=== PATIENT | male | born 1935 | race Caucasian/White ===

== ENCOUNTER 2017-03-02 11:29 | Inpatient (IN) | payer MEDICARE, OTHER ==
[2017-03-02] VITALS (8 sets, daily range): BP systolic 113–148; BP diastolic 53–78; PULSE 68–87; RESP 18–20; TEMP 98.5; Ht 157.5 cm; Wt 75.5 kg
[~2017-03-02] VITALS: Ht 157.5 cm; Wt 75.5 kg
[2017-03-02] MEDS ORDERED: SOD CHLORIDE 0.9% 1,000 ML IV STA (11:44)
[2017-03-02 12:25] LABS: BASOPHIL # 0.1 10^3/ul (0.0-0.1); BASOPHILS % 0.9 % (0.0-2.0); EOSINOPHILS # 0.1 10^3/ul (0.0-0.5); EOSINOPHILS % 0.8 % (0.0-7.0); HEMATOCRIT 37.3 % (42.0-52.0); HEMOGLOBIN 12.1 g/dl (14.0-18.0); LYMPHOCYTES # 3.1 10^3/ul (0.8-2.9); LYMPHOCYTES % 39.1 % (15.0-51.0); MEAN CORPUSCULAR HGB CONC 32.4 g/dl (32.0-37.0); MEAN CORPUSCULAR VOLUME 92.6 fl (82.0-101.0); MEAN PLATELET VOLUME 10.4 fl (7.4-10.4); MONOCYTE # 0.6 10^3/ul (0.3-0.9); NEUTROPHILS % 51.8 % (39.0-77.0); PLATELET COUNT 205 10^3/UL (140-415); RED BLOOD COUNT 4.03 10^6/ul (4.70-6.10); RED CELL DISTRIBUTION WIDTH 14.2 % (11.5-14.5); WHITE BLOOD COUNT 7.9 10^3/ul (4.8-10.8)
--- NOTE | 2017-03-02 12:36 | RADRPT ---
PROCEDURE: XR Chest. CLINICAL INDICATION: Abdominal pain. TECHNIQUE: Single AP portable chest. COMPARISON: No prior Chest x-ray FINDINGS: The cardiomediastinal silhouette is within normal limits of size. Sternotomy wires in place. Minima l prominence of pulmonary vascularity. Elevation of the right hemidiaphragm. Atherosclerotic calc ification of the aorta. The lungs are clear without pleural effusion or focal consolidation. No pne umothorax. The osseous structures and soft tissues are unremarkable. IMPRESSION: 1. No evidence for active cardiopulmonary disease. RPTAT:AAJJ Physician Pawan Date Time Electronically viewed and signed by Physician Pawan on 03/02/2017 12:36 JACINTA/
[2017-03-02 12:55] LABS: ALANINE AMINOTRANSFERASE 33 IU/L (13-69); ALBUMIN 3.9 g/dl (3.3-4.9); ALBUMIN/GLOBULIN RATIO 1.21; ALKALINE PHOSPHATASE 65 IU/L (42-121); ANION GAP 20 (8-16); ASPARTATE AMINO TRANSFERASE 24 IU/L (15-46); BILIRUBIN,INDIRECT 0.6 mg/dl (0-1.1); BILIRUBIN,TOTAL 0.6 mg/dl (0.2-1.3); BLOOD UREA NITROGEN 24 mg/dl (7-20); CALCIUM 8.8 mg/dl (8.4-10.2); CARBON DIOXIDE 21 mmol/L (21-31); CHLORIDE 107 mmol/L (97-110); CREATININE 1.09 mg/dl (0.61-1.24); GLUCOSE 224 mg/dl (70-220); POTASSIUM 4.7 mmol/L (3.5-5.1); SODIUM 143 mmol/L (135-144); TOTAL PROTEIN 7.1 g/dl (6.1-8.1)
[2017-03-02 13:11] LABS: TROPONIN-I < 0.012 ng/ml (0.00-0.12)
[2017-03-02] MEDS ORDERED: LINA5TAB PO (13:20)
[2017-03-02] MEDS ORDERED: GLIM2TAB PO (13:21)
[2017-03-02] MEDS ORDERED: METF1000 PO (13:21)
[2017-03-02] MEDS ORDERED: IPRA4AER INHALATION (13:21)
[2017-03-02] MEDS ORDERED: CARV25TA79 PO (13:21)
[2017-03-02] MEDS ORDERED: ROSU20TA PO (13:22)
[2017-03-02] MEDS ORDERED: ASPI-664 PO (13:22)
[2017-03-02] MEDS ORDERED: ERGO500037 PO (13:23)
--- NOTE | 2017-03-02 13:29 | ERA ---
ER Documentation Chief Complaint Date/Time DATE: 03/02/17 TIME: 13:23 Chief Complaint BIB RA FOR NEAR SYNCOPAL EPISODE FEELING WEAK , DIZZY HPI 81-year-old man brought in by EMS for near syncopal episode, he felt weak and dizzy and had to be helped down to the ground. Daughter who was later at the bedside states he took his antihypertensive medications this morning without eating breakfast. He has had no new medications, no fevers or chills, no complaints of chest pain or shortness of breath, no vomiting or diarrhea. Patient was transported here by EMS without further complications although at the scene his blood pressure was low. ROS All systems reviewed and are negative except as per history of present illness. Medications Home Meds Reported Medications Ergocalciferol (Vitamin D2) (VITAMIN D2) 50,000 Unit Capsule, [address] UNIT PO Q7, CAP 03/02/17 Rosuvastatin Calcium* (Crestor*) 20 Mg Tablet, 20 MG PO QHS, #30 TAB 03/02/17 Aspirin (Low Dose Aspirin) 81 Mg Tablet.dr, 81 MG PO DAILY, #30 TAB 03/02/17 Albuterol/Ipratropium* (Combivent Respimat*) 20-100 Mcg/Inh - 4 Gm Aer.w.adap, 1 PUFF INHALATION QID, #1 INHALER 03/02/17 Carvedilol* (Carvedilol*) 25 Mg Tablet, 25 MG PO BID, #60 TAB 03/02/17 Glimepiride* (Glimepiride*) 2 Mg Tablet, 2 MG PO WITH BREAKFAST, TAB 03/02/17 Metformin Hcl* (Metformin Hcl*) 1,000 Mg Tablet, 1000 MG PO WITH BREAKFAST DINNE , #30 TAB 03/02/17 Linagliptin (TRADJENTA) 5 Mg Tablet, 5 MG PO DAILY, TAB 03/02/17 Allergies Allergies: Coded Allergies: No Known Allergy (Unverified , 03/02/17) PMhx/Soc COPD, CAD, diabetes mellitus, hypertension History of Surgery: Yes (CABG ) Anesthesia Reaction: No Hx Neurological Disorder: No Hx Respiratory Disorders: No Hx Cardiac Disorders: Yes (HTN , HIGH CHOLESTEROL ) Hx Psychiatric Problems: No Hx Miscellaneous Medical Probl: Yes (DM ) Hx Alcohol Use: No Hx Substance Use: No Hx Tobacco Use: Yes Smoking Status: Current every day smoker Fmx Family History: No diabetes Physical Exam Vitals Vital Signs Date Time Temp Pulse Resp B/P Pulse Ox O2 Delivery O2 Flow Rate FiO2 03/02/17 11:54 98.4 03/02/17 11:35 98.1 80 18 120/66 97 Physical Exam GENERAL: Well-developed, well-nourished, appears dehydrated, afebrile HEENT: Dry mucous membranes, pink conjunctiva, no cervical spine tenderness or step-off deformities, no goiter, no jaundice or icterus, extraocular movements intact without pain. No submandibular induration, and no pharyngeal erythema NEURO: Alert and oriented 2, he has no focal deficits or facial asymmetry, he is answering questions appropriately, pupils equal round reactive to light CARDIAC: Regular rate and rhythm, no murmurs rubs or gallops LUNGS: Clear bilaterally no wheezing crackles or stridor ABDOMEN: Soft nontender, no guarding, no rigidity, no rebound, no psoas sign no obturator sign. Normoactive bowel sounds SKIN: Warm and dry to touch, no abrasions, contusions, or hematomas, no lacerations, no ecchymosis, no target lesions, and without ulcers EXTREMITIES: No clubbing cyanosis or edema, calves are bilaterally symmetrical, no Homans sign, no popliteal cord sign. Distal pulses equal and bilateral PSYCH: Normal affect without agitation or irritability Result Diagram: 03/02/17 1155 03/02/17 1155 Results 24 hrs Laboratory Tests Test 03/02/17 11:41 03/02/17 11:55 Bedside Glucose 202mg/dL White Blood Count 7.910^3/ul Red Blood Count 4.0310^6/ul Hemoglobin 12.1g/dl Hematocrit 37.3% Mean Corpuscular Volume 92.6fl Mean Corpuscular Hemoglobin 30.0pg Mean Corpuscular Hemoglobin Concent 32.4g/dl Red Cell Distribution Width 14.2% Platelet Count 28790^3/UL Mean Platelet Volume 10.4fl Neutrophils % 51.8% Lymphocytes % 39.1% Monocytes % 7.0% Eosinophils % 0.8% Basophils % 0.9% Nucleated Red Blood Cells % 0.0/100WBC Neutrophils # (Manual) 4.110^3/ul Lymphocytes # 3.110^3/ul Monocytes # 0.610^3/ul Eosinophils # 0.110^3/ul Basophils # 0.110^3/ul Nucleated Red Blood Cells # 0.010^3/ul Sodium Level 143mmol/L Potassium Level 4.7mmol/L Chloride Level 107mmol/L Carbon Dioxide Level 21mmol/L Anion Gap 20 Blood Urea Nitrogen 24mg/dl Creatinine 1.09mg/dl Glucose Level 224mg/dl Calcium Level 8.8mg/dl Total Bilirubin 0.6mg/dl Direct Bilirubin 0.00mg/dl Indirect Bilirubin 0.6mg/dl Aspartate Amino Transf (AST/SGOT) 24IU/L Alanine Aminotransferase (ALT/SGPT) 33IU/L Alkaline Phosphatase 65IU/L Troponin I < 0.012ng/ml Total Protein 7.1g/dl Albumin 3.9g/dl Globulin 3.20g/dl Albumin/Globulin Ratio 1.21 Lipase 1118U/L Current Medications Medications (Trade) Dose Ordered Sig/Omega Route PRN Reason Start Time Stop Time Status Last Admin Dose Admin Sodium Chloride 1,000 ml @ 1,000 mls/hr Q1H STAT IV 03/02/17 11:44 03/02/17 12:43 DC 03/02/17 11:49 Sodium Chloride (NS) 1,000 ml @ 2,000 mls/hr Q30M ONCE IV 03/02/17 13:30 03/02/17 13:59 UNV Procedures/MDM IV line was established patient was placed on front desk monitor rhythm strip revealed a sinus rhythm at about 80 bpm with upright P and T waves. Patient was afebrile. I administered 1 L normal saline intravenously for dehydration. EKG performed, read by me: 78 bpm, normal sinus rhythm, normal axis, no acute ST segment changes, narrow QRS complex, with good R-wave progression in precordial leads. Chest X-ray 1V Interpreted by me: Soft Tissue: No acute abnormalities Bones: No acute abnormalities Mediastinum/Cardiac Silhouette/Lungs: No acute abnormalities CBC was normal, electrolytes revealed dehydration with an elevated BUN/ creatinine ratio, liver function tests unremarkable, lipase elevated above the thousand concerning for acute pancreatitis. Troponin was negative. Urine analysis has been ordered results are pending I will follow-up. If positive he will be treated with IV antibiotics. Gallbladder ultrasound has been ordered results are pending I will follow-up. Departure Diagnosis: Primary Impression: Syncope Qualified Code: R55 - Syncope, unspecified syncope type Additional Impressions: Dehydration Acute pancreatitis Qualified Code: K85.90 - Acute pancreatitis, unspecified complication status, unspecified pancreatitis type Condition: LINA David MD Mar 02, 2017 13:29
[2017-03-02] MEDS ORDERED: SOD CHLORIDE 0.9% 1,000 ML IV ONE (13:30)
[2017-03-02] MEDS ORDERED: SOD CHLORIDE 0.9% 1,000 ML IV SCH (13:58)
[2017-03-02] MEDS ORDERED: morphine 2 MG INJ IV PRN (14:00)
[2017-03-02] MEDS ORDERED: DOCUSATE SODIUM 100 MG CAP PO PRN (14:00)
[2017-03-02] MEDS ORDERED: OXYCODONE/ACETAMINOPHEN (5/325) TAB PO PRN (14:00)
[2017-03-02] MEDS ORDERED: BISACODYL (EC) 5 MG TAB PO PRN (14:00)
[2017-03-02] MEDS ORDERED: NACL 0.9% 3 ML SYG IV SCH (14:00)
[2017-03-02] MEDS ORDERED: ONDANSETRON 4 MG INJ IV PRN (14:00)
[2017-03-02] MEDS ORDERED: ACETAMINOPHEN 325 MG TAB PO PRN (14:00)
--- NOTE | 2017-03-02 14:05 | RADRPT ---
PROCEDURE: US Abdomen Limited . CLINICAL INDICATION: Abdominal pain TECHNIQUE: Multiple real-time images were acquired of the patient's right upper quadrant abdomen u tilizing a high resolution transducer. COMPARISON: None FINDINGS: The liver measures 15.9 cm and demonstrates a normal echogenicity. The gallbladder is filled with a small to moderate amount of bile. No shadowing echogenic stones or masses are seen in the gallbladd er. The gallbladder wall is thickened at 3.8 mm. No pericholecystic fluid is noted. The common bile duct measures 6.4 mm in diameter. The pancreas is not well visualized. Right kidney measures 11.8 cm. Right kidney demonstrates a normal echogenicity. No hydronephrosis, masses or stones are noted. IMPRESSION: Mildly thickened gallbladder wall. Etiology is uncertain. Finding could be secondary to incomplete distension. If there is concern for early cholecystitis further characterization with CT, MRI or H KOLE scan could be helpful. Pancreas not well visualized. If characterization of this structure is needed repeat exam or CT/MRI is recommended. RPTAT: AA .Teofilo Rangel MD, Date Time Electronically viewed and signed by .Teofilo Rangel MD, on 03/02/2017 14:05 .P/
[2017-03-02 14:16] LABS: ADD UMIC NO; UR ASCORBIC ACID NEGATIVE (NEGATIVE); UR BILIRUBIN (Dip) NEGATIVE (NEGATIVE); UR BLOOD (Dip) NEGATIVE (NEGATIVE); UR CLARITY CLEAR (CLEAR); UR COLOR YELLOW (YELLOW); UR GLUCOSE (Dip) NEGATIVE (NEGATIVE); UR KETONES (Dip) NEGATIVE (NEGATIVE); UR LEUKOCYTE ESTERASE (Dip) NEGATIVE Leu/ul (NEGATIVE); UR NITRITE (Dip) NEGATIVE (NEGATIVE); UR SPECIFIC GRAVITY (Dip) 1.013 (1.003-1.030); UR TOTAL PROTEIN (Dip) NEGATIVE (NEGATIVE); UR UROBILINOGEN (Dip) NEGATIVE (NEGATIVE)
[2017-03-02 14:17] LABS: INR 0.94; PROTIME 12.6 Sec (12.2-14.2)
[2017-03-02 14:20] LABS: LACTATE DEHYDROGENASE 381 IU/L (313-618)
[2017-03-02] MEDS: PIPER-TAZO 2.25 GM (PMX) 50 ML IVPB SCH ×2 (14:30→22:21)
[2017-03-02] MEDS: FAMOTIDINE 20 MG INJ IV SCH ×2 (14:58→20:51)
--- NOTE | 2017-03-02 16:16 | RADRPT ---
PROCEDURE: US Carotids. CLINICAL INDICATION: TIA, near-syncope TECHNIQUE: Multiple sonographic of the carotid arteries were obtained utilizing lopez scale imaging . Color and Doppler imaging was performed. The images were reviewed on a PACS workstation. COMPARISON: No prior studies are available for comparison. FINDINGS: LocationRightLeft CCA69 cm/sec89 cm/sec Prox ICA53 cm/sec80 cm/sec Mid ICA65 cm/sec32 cm/sec Dist ICA66 cm/sec32 cm/sec ECA76 cm/jsp275 cm/sec ICA/CCA1.00.9 Antegrade flow is seen within the vertebral arteries bilaterally. Moderate calcific plaque is presen t in the right common carotid artery and bilateral internal carotid arteries. No hemodynamically si gnificant stenosis or occlusion is identified. IMPRESSION: 1. No evidence for hemodynamically significant stenosis or occlusion. 2. Antegrade flow seen within the vertebral arteries bilaterally. Validated velocity measurements with angiographic measurements, velocity criteria are extrapolated f rom diameter data as defined by the Society of Radiologists in Ultrasound Consensus Conference (Radi ology 2003; 229; 340-346). This study does indirectly reference the measurement of the distal ICA d iameter as the denominator for stenosis measurement. RPTAT: HH .Bob Graff MD, Date Time Electronically viewed and signed by .Bob Graff MD, on 03/02/2017 16:15 .R/
--- NOTE | 2017-03-02 17:58 | RADRPT ---
PROCEDURE: CT Abdomen and Pelvis without contrast. CLINICAL INDICATION: Abdominal pain TECHNIQUE: CT of the abdomen and pelvis was performed on a multi-detector scanner without IV contr ast. Coronal and sagittal images were reformatted from the axial data set. One or more of the foll owing dose reduction techniques were used: automated exposure control, adjustment of the mA and/or k V according to patient size, use of iterative reconstruction technique. CTDI = 15.95 mGy. DLP = 100 2 mGy-cm. COMPARISON: Ultrasound, 03/02/2017 FINDINGS: CT abdomen: The lung bases are clear. The heart size is normal, without pericardial effusion. Coronary arteria l calcifications are noted. Liver, gallbladder, biliary tree, pancreas, spleen, adrenal glands and kidneys are unremarkable. No urolithiasis or obstructive uropathy is identified. The stomach is gr ossly unremarkable. The aorta is of normal caliber. Aortic vascular calcifications are present. There is no retroperit luna lymphadenopathy. The yoly hepatis region is clear. CT pelvis: No bowel obstruction, free intraperitoneal air or abscess is identified. The appendix is well visua lized and normal. There is no diverticulosis, diverticulitis or colitis. Urinary bladder is grossl y unremarkable. No pelvic mass, free fluid or lymphadenopathy is identified. Prostate is mildly en larged. The surrounding osseous structures are remarkable for diffuse degenerative enthesopathy of the spine . No osteolytic or osteoblastic lesion is detected. IMPRESSION: 1. Coronary arterial and aortoiliac atherosclerotic calcifications are present. 2. Prostate is mildly enlarged - correlate with PSA level. 3. No mass, lymphadenopathy, or focal acute inflammatory process is identified. RPTAT: HH .Bob Graff MD, MD Date Time Electronically viewed and signed by .Bob Graff MD, MD on 03/02/2017 17:58 .R/
[2017-03-02] MEDS: ALBUTEROL/IPRATROPIUM (NEB) 3 ML AMP HHN SCH (20:28)
[2017-03-02] MEDS ORDERED: GLUCAGON 1 MG INJ IM PRN (20:30)
[2017-03-02] MEDS ORDERED: GLUCOSE GEL 15 GRAM TUBE BUCCAL PRN (20:30)
[2017-03-02] MEDS ORDERED: DEXTROSE 50% 50 ML SYRINGE IV PRN ×2 (20:30)
[2017-03-02] MEDS ORDERED: hydrALAzine 20 MG INJ IV PRN (20:30)
[2017-03-02] MEDS ORDERED: GLUCOSE GEL 15 GRAM TUBE PO PRN ×2 (20:30)
[2017-03-02] MEDS: DEXTROSE 5%-0.45% NACL 1,000 ML IV SCH (20:51)
[2017-03-02] MEDS: ATORVASTATIN 80 MG TAB PO SCH (20:52)
[2017-03-02] MEDS: INSULIN ASPART [NOVOLOG] 3 ML PEN SC SCH (21:00)
[2017-03-03] VITALS (13 sets, daily range): BP systolic 98–145; BP diastolic 55–66; PULSE 62–74; RESP 16–20
[2017-03-03] MEDS: INSULIN ASPART [NOVOLOG] 3 ML PEN SC SCH ×5 (01:28→20:13)
[2017-03-03] MEDS: DEXTROSE 5%-0.45% NACL 1,000 ML IV SCH ×2 (05:03→12:30)
[2017-03-03] MEDS: PIPER-TAZO 2.25 GM (PMX) 50 ML IVPB SCH ×2 (05:46→13:52)
[2017-03-03] MEDS: ALBUTEROL/IPRATROPIUM (NEB) 3 ML AMP HHN SCH ×4 (07:53→21:06)
[2017-03-03 08:06] LABS: BASOPHILS % 0.5 % (0.0-2.0); EOSINOPHILS # 0.1 10^3/ul (0.0-0.5); EOSINOPHILS % 1.4 % (0.0-7.0); HEMATOCRIT 35.4 % (42.0-52.0); HEMOGLOBIN 11.3 g/dl (14.0-18.0); LYMPHOCYTES # 2.9 10^3/ul (0.8-2.9); LYMPHOCYTES % 34.4 % (15.0-51.0); MEAN CORPUSCULAR HEMOGLOBIN 29.5 pg (29.0-33.0); MEAN CORPUSCULAR HGB CONC 31.9 g/dl (32.0-37.0); MEAN CORPUSCULAR VOLUME 92.4 fl (82.0-101.0); MEAN PLATELET VOLUME 10.2 fl (7.4-10.4); MONOCYTE # 0.7 10^3/ul (0.3-0.9); MONOCYTES % 7.7 % (0.0-11.0); NEUTROPHILS % 55.6 % (39.0-77.0); PLATELET COUNT 185 10^3/UL (140-415); RED BLOOD COUNT 3.83 10^6/ul (4.70-6.10); RED CELL DISTRIBUTION WIDTH 14.1 % (11.5-14.5); WHITE BLOOD COUNT 8.4 10^3/ul (4.8-10.8)
[2017-03-03 08:35] LABS: INR 1.02; PROTIME 13.4 Sec (12.2-14.2)
[2017-03-03 08:39] LABS: CHOL/HDL RATIO 2.6 RATIO; CHOLESTEROL 118 mg/dl (100-200); HDL CHOLESTEROL 45 mg/dl (31-75); TRIGLYCERIDES 92 mg/dl (0-149)
[2017-03-03 08:45] LABS: TROPONIN-I < 0.012 ng/ml (0.00-0.12)
[2017-03-03] MEDS: FAMOTIDINE 20 MG INJ IV SCH (09:18)
[2017-03-03] MEDS: ENOXAPARIN 40 MG/0.4 ML SYG SC SCH (09:18)
[2017-03-03] MEDS: ASPIRIN (EC) 81 MG TAB PO SCH (09:18)
--- NOTE | 2017-03-03 13:21 | RADRPT ---
Vent Rate: 70 bpm RR Interval: 0 msec MT Interval: 148 msec QRS Duration: 88 msec QT Interval: 416 msec QTC Interval: 449 msec P-R-T [place]: 1 - 15 - 38 degrees Sinus rhythm with premature supraventricular complexes Otherwise normal ECG Electronically Signed By: Jimmy Rao [id number]
[2017-03-03 14:30] LABS: BILIRUBIN,INDIRECT 1.2 mg/dl (0-1.1); BILIRUBIN,TOTAL 1.2 mg/dl (0.2-1.3); CALCIUM 8.3 mg/dl (8.4-10.2); CREATININE 1.04 mg/dl (0.61-1.24); MAGNESIUM 1.6 mg/dl (1.7-2.5); PHOSPHORUS 2.9 mg/dl (2.5-4.9); POTASSIUM 4.8 mmol/L (3.5-5.1)
[2017-03-03 15:00] LABS: THYROID STIMULATING HORMONE 6.13 MIU/L (0.465-4.680)
[2017-03-03] MEDS ORDERED: INSULIN ASPART [NOVOLOG] 3 ML PEN SC SCH (18:05)
--- NOTE | 2017-03-03 18:20 | RADRPT ---
Echocardiogram Report Patient Name: BARBARA BARROS Gender: Male Date: 1935 Study Date: 03-Mar-2017 Gear Machine Operator: Nora [facility] Location: 5549 Ref. Physician: ALEXUS GARBER Quality: Technically Difficult Study Procedures: Transthoracic echocardiogram with complete 2D, M-Mode, and doppler examination. Indications: Syncope. 2D/M Mode Doppler Measurement Value Normal Ranges Measurement Value Normal Ranges LVIDd 2D 3.9 3.5 - 5.6 cm NICCI Vmax 0.7 cm2 LVIDs 2D 2.8 2.1 - 4.1 cm NICCI VTI 0.7 cm2 LVPWd 2D 1.2 0.6 - 1.1 cm AV Mean Justo 2.2 m/sec IVSd 2D 1.2 0.6 - 1.1 cm AV Mean PG 21.2 mmHg AoR Diam 2D 2.9 2.0 - 3.7 cm AV Peak Justo 2.8 m/sec EDV 2D 66.8 cm3 AV Peak PG 31.1 mmHg ESV 2D 21.9 cm3 AV VTI 71.1 cm LA Dimen 2D 4.0 2.3 - 4.0 cm AI Peak PG 11.5 mmHg LVOT Diam 2.0 cm AI Peak Justo 1.7 m/sec AI PHT 563.0 msec LVOT Mean Justo 0.4 m/sec LVOT Mean PG 0.7 mmHg LVOT Peak Justo 0.6 m/sec LVOT Peak PG 1.2 mmHg LVOT VTI 13.5 cm MV E Peak Justo 0.8 m/sec MV A Peak Justo 0.7 m/sec MV E/A 1.1 MV Decel Time 262 msec MV Decel [place] 3 MV E/A 1.1 TR Peak Justo 2.4 m/sec TR Peak PG 23.2 mmHg RVSP 31.0 mmHg Findings Left Ventricle: Normal left ventricular systolic function. Normal left ventricular cavity size. Normal left ventricular wall thickness. Ejection fraction is visually estimated at 55 %. Abnormal Diastolic Function. Right Ventricle: Normal right ventricular size. Normal right ventricular systolic function. Left Atrium: Upper limit of normal left atrial size. Right Atrium: The right atrium is normal in size. Mitral Valve: Mitral valve leaflets appear mildly thickened. Mild mitral annular calcification. Mild mitral valve regurgitation. Aortic Valve: Moderate to severe aortic stenosis. Aortic valve Max velocity 2.79 m/sec. Max PG 31.00 mmHg. Mean PG 21.00 mmHg. Aortic cusps appear moderately calcified. Mild aortic valve regurgitation. Tricuspid Valve: Normal appearance of the tricuspid valve. Estimated peak PA systolic pressure 31 mmHg. There is mild tricuspid regurgitation. Pulmonic Valve: Normal pulmonic valve appearance. Pericardium: Normal pericardium with no significant pericardial effusion. Aorta: Normal aortic root. IVC: The IVC is not well visualized. Conclusions 1.Normal left ventricular systolic function. Normal left ventricular cavity size. Normal left ventricular wall thickness. Ejection fraction is visually estimated at 55 %. Abnormal Diastolic Function. 2.Mitral valve leaflets appear mildly thickened. Mild mitral annular calcification. Mild mitral valve regurgitation. 3.Moderate to severe aortic stenosis. Aortic valve Max velocity 2.79 m/sec. Max PG 31.00 mmHg. Mean PG 21.00 mmHg. Aortic cusps appear moderately calcified. Mild aortic valve regurgitation. 4.Normal appearance of the tricuspid valve. Estimated peak PA systolic pressure 31 mmHg. There is mild tricuspid regurgitation. Electronically Signed By: Isai Fleming 03-Mar-2017 18:20:29 -3600 Patient Name: BARBARA BARROS Study Date: 03-Mar-2017 [id number]
--- NOTE | 2017-03-03 19:36 | PN ---
Date/Time of Note Date/Time of Note DATE: 03/03/17 TIME: 19:33 Assessment/Plan VTE Prophylaxis VTE Prophylaxis Intervention: LMWH Lines/Catheters IV [facility] Saline Lock Assessment/Plan Chief Complaint/Hosp Course s -no further syncope o- sr no pallor/droop reg; no m/r/g ctab bs + nt nd no r/r/g no edema non focal A/P 1. Presyncope. r/o arrhythmia. 2nd to #2?? 2. A Stenosis -mod/severe. cardio eval 3. CAD/cabg 4. Dm/htn/dl 5. Tobacco 6. Copd? Problems: Exam/Review of Systems Vital Signs Vitals Vital Signs Date Time Temp Pulse Resp B/P Pulse Ox O2 Delivery O2 Flow Rate FiO2 03/03/17 16:27 98.3 73 17 145/66 99 03/03/17 13:08 Nasal Cannula 2.0 Intake and Output 03/02/17 03/02/17 03/03/17 15:00 23:00 07:00 Intake Total 50 ml 1150 ml Output Total 650 ml Balance 50 ml 500 ml Results Result Diagram: 03/03/1731 03/03/1731 Results 24 hrs Laboratory Tests Test 03/02/17 21:20 03/03/17 01:21 03/03/17 05:00 03/03/17 07:31 Bedside Glucose 117 150 162 White Blood Count 8.4 Red Blood Count 3.83 L Hemoglobin 11.3 L Hematocrit 35.4 L Mean Corpuscular Volume 92.4 Mean Corpuscular Hemoglobin 29.5 Mean Corpuscular Hemoglobin Concent 31.9 L Red Cell Distribution Width 14.1 Platelet Count 185 Mean Platelet Volume 10.2 Neutrophils % 55.6 Lymphocytes % 34.4 Monocytes % 7.7 Eosinophils % 1.4 Basophils % 0.5 Nucleated Red Blood Cells % 0.0 Neutrophils # (Manual) 4.7 Lymphocytes # 2.9 Monocytes # 0.7 Eosinophils # 0.1 Basophils # 0.0 Nucleated Red Blood Cells # 0.0 Prothrombin Time 13.4 Prothrombin Time Ratio 1.0 INR International Normalized Ratio 1.02 Sodium Level 138 Potassium Level 4.8 Chloride Level 102 Carbon Dioxide Level 25 Anion Gap 16 Blood Urea Nitrogen 17 Creatinine 1.04 Glucose Level 156 Hemoglobin A1c 6.2 H Calcium Level 8.3 L Phosphorus Level 2.9 Magnesium Level 1.6 L Total Bilirubin 1.2 Direct Bilirubin 0.00 Indirect Bilirubin 1.2 H Aspartate Amino Transf (AST/SGOT) 20 Alanine Aminotransferase (ALT/SGPT) 29 Alkaline Phosphatase 49 Troponin I < 0.012 Total Protein 6.0 #L Albumin 3.0 L Globulin 3.00 Albumin/Globulin Ratio 1.00 Triglycerides Level 92 Cholesterol Level 118 LDL Cholesterol, Calculated 55 HDL Cholesterol 45 Cholesterol/HDL Ratio 2.6 Thyroid Stimulating Hormone (TSH) 6.130 H Test 03/03/17 09:22 03/03/17 17:26 Bedside Glucose 182 166 Medications Medications Current Medications Ondansetron HCl (Zofran Inj) 4 mg Q6H PRN IV NAUSEA AND/OR VOMITING Last administered on 03/02/17 17:37; Admin Dose 4 MG; Start 03/02/17 at 14:00 Acetaminophen (Tylenol Tab) 650 mg Q6H PRN PO PAIN LEVEL 1-3 OR FEVER; Start at 14:00 Oxycodone/ Acetaminophen (Percocet (5/ 325)) 1 tab Q6H PRN PO MODERATE PAIN LEVEL 4-6; Start 03/02/17 at 14:00 Morphine Sulfate (morphine) 2 mg Q4H PRN IV SEVERE PAIN LEVEL 7-10; Start 03/02 at 14:00 Docusate Sodium (Colace) 100 mg Q12H PRN PO CONSTIPATION; Start 03/02/17 at 14: 00 Bisacodyl (Dulcolax) 5 mg DAILY PRN PO CONSTIPATION; Start 03/02/17 at 14:00 Enoxaparin Sodium (Lovenox) 40 mg DAILY SC Last administered on 03/03/17 09:18 ; Admin Dose 40 MG; Start 03/03/17 at 09:00 Aspirin (Halfprin) 81 mg DAILY PO Last administered on 03/03/17 09:18; Admin Dose 81 MG; Start 03/03/17 at 09:00 Carvedilol (Coreg) 25 mg BID PO Last administered on 03/02/17 20:52; Admin Dose 25 MG; Start 03/02/17 at 21:00 Atorvastatin Calcium (Lipitor) 80 mg DAILY@21 PO Last administered on 20:52; Admin Dose 80 MG; Start 03/02/17 at 21:00 Hydralazine HCl (Apresoline) 10 mg Q4H PRN IV systolic BP >160; Start 03/02/17 at 20:30 Miscellaneous Information 1 ea NOTE XX ; Start 03/02/17 at 20:30 Glucose (Glutose) 15 gm Q15M PRN PO DECREASED GLUCOSE; Start 03/02/17 at 20:30 Glucose (Glutose) 22.5 gm Q15M PRN PO DECREASED GLUCOSE; Start 03/02/17 at 20: 30 Dextrose (D50w Syringe) 25 ml Q15M PRN IV DECREASED GLUCOSE; Start 03/02/17 at 20:30 Dextrose (D50w Syringe) 50 ml Q15M PRN IV DECREASED GLUCOSE; Start 03/02/17 at 20:30 Glucose (Glutose) 15 gm Q15M PRN BUCCAL DECREASED GLUCOSE; Start 03/02/17 at 20 :30 Diagnostic Test (Pha) (Accu-Chek) 1 ea 02 XX ; Start 03/04/17 at 02:00 Famotidine (Pepcid) 20 mg DAILY PO ; Start 03/04/17 at 09:00 ALEXUS GARBER MD Mar 03, 2017 19:36
[2017-03-03] MEDS: ATORVASTATIN 80 MG TAB PO SCH (20:17)
--- NOTE | 2017-03-03 21:26 | HP ---
DATE OF ADMISSION: 03/02/2017 PRIMARY CARE PHYSICIAN: Unknown. PRODUCT LEAD: None. CHIEF COMPLAINT: Altered mental status. HISTORY OF PRESENT ILLNESS: This is an 81-year-old gentleman who lives at home, was in his usual state of health and had an acute episode of dizziness, possibly lost his speech for a very short amount of time, possibly presyncope. No known aggravating, no known relieving factors. By the time he was in the ER, he was lethargic but following commands. Denies any recurrent problems. No focal deficits noted. No focal visual loss. Neuro exam was appropriate. [place] Coma Scale of 15. Patient denies any change in medications, no trouble swallowing foods. No previous similar discomfort in the past. I believe he uses a cane or a walker. No arrhythmia is seen. EKG is sinus rhythm. PAST MEDICAL HISTORY: Tobacco abuse, coronary artery disease, probable bypass graft status, dyslipidemia, vitamin D deficiency, hypertension, metabolic syndrome, possible COPD. PAST SURGICAL HISTORY: Probable coronary artery bypass graft. ALLERGIES: NO KNOWN DRUG ALLERGIES. HOME MEDICATIONS: 1. Tradjenta 5. 2. Metformin 1000 b.i.d. 3. Amaryl 2 daily. 4. Coreg 25 b.i.d. 5. Combivent as needed 4 times a day. 6. Aspirin 81. 7. Crestor 20. 8. Vitamin D 50,000 units daily. SOCIAL HISTORY: Positive tobacco. No alcohol. FAMILY HISTORY: Noncontributory. REVIEW OF SYSTEMS: NEUROLOGIC: No headache. Possible loss of speech. No loss of vision. CARDIOVASCULAR: No chest pain, no dyspnea, no edema. LUNGS: No cough, no wheezing, no fever. ABDOMEN: No pain, nausea, vomiting, diarrhea. GENITOURINARY: No hematuria, abdominal pain or fever. MUSCULOSKELETAL: No gait dysfunction. No focal deficits. SKIN: No rash, no itching, no edema. CONSTITUTIONAL: No fevers, no chills, no weight loss that I am aware of. ENDOCRINE: Positive diabetes. No thyroid dysfunction. Positive dyslipidemia. PHYSICAL EXAMINATION: HEENT: Extraocular movements are intact. No pallor. No icterus. No adenopathy. No carotid bruits. No JVD. No droop. CARDIOVASCULAR: S1, S2 regular. No murmur, rub or gallop. LUNGS: Clear to auscultation bilaterally. ABDOMEN: Bowel sounds present, nontender, nondistended. No rigidity. No rebound. No guarding. EXTREMITIES: Without any edema. NEUROLOGIC: Cranial nerves 2-12 grossly intact. Motor: 5/5 . Sensory: Symmetrical reflexes, symmetrical Babinski's. LABORATORY: CBC essentially umremarkable. INR of 0.9. CMP essentially unremarkable. Sodium 143, potassium 4, chloride 101, bicarb 21, BUN of 24, creatinine 1.0, glucose of 200. LFTs okay. Lipase of 1000. A1c of 6.2. Troponin negative. Urine unremarkable. ASSESSMENT: 1. Acute syncope/presyncope. Rule out arrhythmia. Rule out possible transient ischemic attack. 2. Abnormal lipase. No evidence of abdominal pain. Possible lab error. Doubt any pain-associated syncope at this time from pancreatitis. 3. Chronic coronary artery disease. 4. Tobacco abuse. Counseling. 5. Hypertension. 6. Dyslipidemia. 7. Metabolic syndrome. 8. No evidence of hypoglycemia. PLAN: 1. Do tele. Rule out arrhythmia. 2. If symptoms concerning, may treat his aspirin failure and add Plavix. 3. Tobacco smoking cessation patch. 4. Need his advanced care planning to be reevaluated for future risk. Dictated By: David Rubin MD /belia/fadia /Document#: [id number]
[2017-03-03] MEDS: ACCU-CHEK XX SCH (23:44)
[2017-03-04] VITALS (12 sets, daily range): BP systolic 121–137; BP diastolic 54–63; PULSE 66–77; RESP 16–19
[2017-03-04] MEDS ORDERED: ACCU-CHEK XX SCH ×2 (02:00)
[2017-03-04 07:44] LABS: BASOPHIL # 0.1 10^3/ul (0.0-0.1); BASOPHILS % 0.8 % (0.0-2.0); EOSINOPHILS # 0.1 10^3/ul (0.0-0.5); EOSINOPHILS % 0.9 % (0.0-7.0); HEMOGLOBIN 12.3 g/dl (14.0-18.0); LYMPHOCYTES # 3.4 10^3/ul (0.8-2.9); LYMPHOCYTES % 37.5 % (15.0-51.0); MEAN CORPUSCULAR HEMOGLOBIN 29.6 pg (29.0-33.0); MEAN CORPUSCULAR HGB CONC 32.4 g/dl (32.0-37.0); MEAN CORPUSCULAR VOLUME 91.6 fl (82.0-101.0); MEAN PLATELET VOLUME 10.1 fl (7.4-10.4); MONOCYTE # 0.7 10^3/ul (0.3-0.9); MONOCYTES % 7.7 % (0.0-11.0); NEUTROPHILS % 52.9 % (39.0-77.0); PLATELET COUNT 210 10^3/UL (140-415); RED BLOOD COUNT 4.15 10^6/ul (4.70-6.10); RED CELL DISTRIBUTION WIDTH 14.4 % (11.5-14.5); WHITE BLOOD COUNT 9.2 10^3/ul (4.8-10.8)
[2017-03-04] MEDS: INSULIN ASPART [NOVOLOG] 3 ML PEN SC SCH ×4 (08:00→21:58)
[2017-03-04 08:12] LABS: TROPONIN-I 0.013 ng/ml (0.00-0.12)
[2017-03-04 08:16] LABS: ALBUMIN/GLOBULIN RATIO 1.21; CALCIUM 8.8 mg/dl (8.4-10.2); CREATININE 1.14 mg/dl (0.61-1.24); MAGNESIUM 1.6 mg/dl (1.7-2.5); PHOSPHORUS 3.1 mg/dl (2.5-4.9); POTASSIUM 4.4 mmol/L (3.5-5.1); TOTAL PROTEIN 7.3 g/dl (6.1-8.1)
[2017-03-04] MEDS: ALBUTEROL/IPRATROPIUM (NEB) 3 ML AMP HHN SCH ×4 (08:27→20:39)
[2017-03-04 08:29] LABS: TRIIODOTHYRONINE 0.89 ng/ml (0.97-1.69)
[2017-03-04] MEDS: FAMOTIDINE 20 MG TAB PO SCH (09:14)
[2017-03-04] MEDS: ASPIRIN (EC) 81 MG TAB PO SCH (09:14)
[2017-03-04] MEDS: ENOXAPARIN 40 MG/0.4 ML SYG SC SCH (09:15)
--- NOTE | 2017-03-04 17:31 | PN ---
Date/Time of Note Date/Time of Note DATE: 03/04/17 TIME: 17:30 Assessment/Plan VTE Prophylaxis VTE Prophylaxis Intervention: LMWH Lines/Catheters IV Catheter Type (from [facility]): Saline Lock Assessment/Plan Chief Complaint/Hosp Course s - 03/03 no further syncope 03/04: No further events. Denies any dysphagia or loss of speech vision. Son updated regarding issue of his heart o- sr no pallor/droop reg; no m/r/g ctab bs + nt nd no r/r/g no edema non focal A/P 1. Presyncope. r/o arrhythmia. 2nd to #2?? 2. A Stenosis -mod/severe. cardio eval 3. CAD/cabg 4. Dm/htn/dl 5. Tobacco 6. Copd? Problems: Exam/Review of Systems Vital Signs Vitals Vital Signs Date Time Temp Pulse Resp B/P Pulse Ox O2 Delivery O2 Flow Rate FiO2 03/04/17 16:10 69 03/04/17 12:51 16 99 03/04/17 12:29 97.4 123/54 Room Air 03/03/17 21:09 2.0 Intake and Output 03/03/17 03/03/17 03/04/17 15:00 23:00 07:00 Intake Total 650 ml 200 ml Balance 650 ml 200 ml Results Result Diagram: 03/04/1772103/04/17721 Results 24 hrs Laboratory Tests Test 03/03/17 20:03 03/04/17 07:22 03/04/17 08:01 03/04/17 12:11 Bedside Glucose 170 135 244 H White Blood Count 9.2 Red Blood Count 4.15 L Hemoglobin 12.3 L Hematocrit 38.0 L Mean Corpuscular Volume 91.6 Mean Corpuscular Hemoglobin 29.6 Mean Corpuscular Hemoglobin Concent 32.4 Red Cell Distribution Width 14.4 Platelet Count 210 Mean Platelet Volume 10.1 Neutrophils % 52.9 Lymphocytes % 37.5 Monocytes % 7.7 Eosinophils % 0.9 Basophils % 0.8 Nucleated Red Blood Cells % 0.0 Neutrophils # (Manual) 4.9 Lymphocytes # 3.4 H Monocytes # 0.7 Eosinophils # 0.1 Basophils # 0.1 Nucleated Red Blood Cells # 0.0 Sodium Level 146 H Potassium Level 4.4 Chloride Level 105 Carbon Dioxide Level 27 Anion Gap 18 H Blood Urea Nitrogen 14 Creatinine 1.14 Glucose Level 153 Calcium Level 8.8 Phosphorus Level 3.1 Magnesium Level 1.6 L Total Bilirubin 1.0 Direct Bilirubin 0.00 Indirect Bilirubin 1.0 Aspartate Amino Transf (AST/SGOT) 19 Alanine Aminotransferase (ALT/SGPT) 33 Alkaline Phosphatase 66 Troponin I 0.013 Total Protein 7.3 # Albumin 4.0 # Globulin 3.30 H Albumin/Globulin Ratio 1.21 Lipase 349 H Free Thyroxine 0.81 L Total Triiodothyronine 0.89 L Test 03/04/17 17:22 Bedside Glucose 92 Medications Medications Current Medications Ondansetron HCl (Zofran Inj) 4 mg Q6H PRN IV NAUSEA AND/OR VOMITING Last administered on 03/02/17 17:37; Admin Dose 4 MG; Start 03/02/17 at 14:00 Acetaminophen (Tylenol Tab) 650 mg Q6H PRN PO PAIN LEVEL 1-3 OR FEVER; Start at 14:00 Oxycodone/ Acetaminophen (Percocet (5/ 325)) 1 tab Q6H PRN PO MODERATE PAIN LEVEL 4-6; Start 03/02/17 at 14:00 Morphine Sulfate (morphine) 2 mg Q4H PRN IV SEVERE PAIN LEVEL 7-10; Start 03/02 at 14:00 Docusate Sodium (Colace) 100 mg Q12H PRN PO CONSTIPATION; Start 03/02/17 at 14: 00 Bisacodyl (Dulcolax) 5 mg DAILY PRN PO CONSTIPATION; Start 03/02/17 at 14:00 Enoxaparin Sodium (Lovenox) 40 mg DAILY SC Last administered on 03/04/17 09:15 ; Admin Dose 40 MG; Start 03/03/17 at 09:00 Aspirin (Halfprin) 81 mg DAILY PO Last administered on 03/04/17 09:14; Admin Dose 81 MG; Start 03/03/17 at 09:00 Carvedilol (Coreg) 25 mg BID PO Last administered on 03/04/17 09:14; Admin Dose 25 MG; Start 03/02/17 at 21:00 Atorvastatin Calcium (Lipitor) 80 mg DAILY@21 PO Last administered on 20:17; Admin Dose 80 MG; Start 03/02/17 at 21:00 Hydralazine HCl (Apresoline) 10 mg Q4H PRN IV systolic BP >160; Start 03/02/17 at 20:30 Miscellaneous Information 1 ea NOTE XX ; Start 03/02/17 at 20:30 Glucose (Glutose) 15 gm Q15M PRN PO DECREASED GLUCOSE; Start 03/02/17 at 20:30 Glucose (Glutose) 22.5 gm Q15M PRN PO DECREASED GLUCOSE; Start 03/02/17 at 20: 30 Dextrose (D50w Syringe) 25 ml Q15M PRN IV DECREASED GLUCOSE; Start 03/02/17 at 20:30 Dextrose (D50w Syringe) 50 ml Q15M PRN IV DECREASED GLUCOSE; Start 03/02/17 at 20:30 Glucose (Glutose) 15 gm Q15M PRN BUCCAL DECREASED GLUCOSE; Start 03/02/17 at 20 :30 Diagnostic Test (Pha) (Accu-Chek) 1 ea 02 XX ; Start 03/04/17 at 02:00 Famotidine (Pepcid) 20 mg DAILY PO Last administered on 03/04/17t 09:14; Admin Dose 20 MG; Start 03/04/17 at 09:00 ALEXUS GARBER MD Mar 04, 2017 17:31
[2017-03-04] MEDS: ATORVASTATIN 80 MG TAB PO SCH (21:58)
--- NOTE | 2017-03-05 00:24 | CONS ---
DATE OF ADMISSION: 03/02/2017 DATE OF CONSULTATION: 03/04/2017 REASON FOR CONSULTATION: Syncope/presyncope, with aortic stenosis by 2D echo. REFERRING PHYSICIAN: Dr. David Rubin MD, from the hospitalist service. HISTORY OF PRESENT ILLNESS: Mr. Escalante is an 81-year-old male with a history of hypertension, dyslipidemia, ongoing tobacco, coronary artery disease, chronic obstructive pulmonary disease, diabetes mellitus, who presented status post an episode of dizziness and difficulty with speech. Upon arrival in the emergency department initially, temperature 98.1, blood pressure 120/66, pulse 80, respiratory rate 18, saturating 97 percent. Patient's labs: White count 7.9, hemoglobin 12.1, platelet count of 205. Sodium 146, potassium 4.4, creatinine 1.1, BUN 14. Lipase of 1118. TSH 0.13. INR 0.94. UA negative. Patient underwent a carotid Doppler, revealing no evidence for hemodynamically significant stenosis or occlusion. Antegrade flow seen within the vertebral arteries bilaterally. Patient then underwent abdominal and pelvic CT, revealing coronary arterial aortoiliac atherosclerotic calcifications are present. Prostate mildly enlarged. Chest x-ray: No evidence for active cardiopulmonary disease and a gallbladder ultrasound that revealed the pancreas not well visualized, mildly thickened gallbladder wall. Patient's electrocardiogram revealed sinus rhythm, heart rate of 70, normal axis, normal intervals, occasional PACs. Patient subsequently admitted to the telemetry floor. A total of 2 negative troponins, patient has been continuously monitored on telemetry, revealing sinus rhythm, no significant arrhythmia, positive associated PACs. Patient underwent a 2D echo done by myself, revealing a preserved left ventricular ejection fraction but with moderate to severe , with a significant mismatch between aortic valve area and gradient, with a mean peak gradient of only 21, but aortic valve area of 0.7, and by visually more consistent with moderate to severe aortic stenosis. PAST MEDICAL HISTORY: As above in HPI. MEDICATION: Currently in the hospital: 1. Aspirin. 2. Carvedilol 25 mg p.o. b.i.d. 3. Hydralazine p.r.n. 4. Pepcid p.r.n. 5. DuoNeb p.r.n. 6. Tylenol p.r.n. 7. Morphine p.r.n. 8. Colace p.r.n. 9. Dulcolax p.r.n. ALLERGIES: NO KNOWN DRUG ALLERGIES. SOCIAL HISTORY: Positive tobacco. No EtOH or illicit drug use. FAMILY HISTORY: No history of cardiac or early CAD. REVIEW OF SYSTEMS: As above in HPI. CONSTITUTIONAL: No fevers, chills. RESPIRATORY: No current shortness of breath. CARDIOVASCULAR: No current chest pain. GASTROINTESTINAL: No vomiting. GENITOURINARY: No hematuria. MUSCULOSKELETAL: Degenerative joint disease. PSYCHIATRIC: Patient has depression. NEUROLOGIC: No documented CVA. PHYSICAL EXAMINATION: VITAL SIGNS: Temperature 98, blood pressure most recent 137/60, pulse 70, respiratory rate 19, saturating 99 percent. GENERAL: Patient is sleeping, easily arousable. NECK: JVP approximately 8-9 cm of water. LUNGS: Fair air movement throughout. HEART: Regular rate and rhythm. Normal S1, S2, 1/6 systolic murmur. Nondisplaced PMI. ABDOMEN: Positive bowel sounds. Soft. EXTREMITIES: No pitting edema, 1+ pulses bilaterally, posterior tibial pulses. LABORATORY: Labs as above in HPI. Most recent today: Sodium 146, potassium 4.4, creatinine 1.1, BUN 14. White cell count 9.2, hemoglobin 12.3, platelet count of 210. IMAGING: No further imaging studies are reviewed at this time. ELECTROCARDIOGRAM: ECG as above in HPI. No further electrocardiogram has been reviewed at this time. IMPRESSION: 1. Aortic stenosis, moderate to severe by 2D echo. 2. Syncope/presyncope, question if a component of aortic stenosis. 3. Premature atrial contractions by telemetry monitoring. 4. Hypertension, under reasonable control. 5. Dyslipidemia. 6. Ongoing tobacco usage. 7. Hypernatremia. RECOMMENDATIONS: 1. At this time, would maintain patient on telemetry while he is on telemetry floor. Continue to assess for any possible rhythm causes to the patient's fall. 2. Patient has been ruled out with a total of 3 negative troponins. 3. Patient echo does reveal aortic stenosis, but mismatch between gradient and calculated aortic valve area does likely require further evaluation to assess its true component and possible association with syncope. Additionally, patient's aortic stenosis may have been exacerbated in the setting of what appears to be somewhat of a prerenal state and pancreatitis, and thus would recommend further outpatient eval, including likely right and left heart catheterization to further assess the true aortic valve area and gradient. 4. Continue the patient's baseline carvedilol at this time for blood pressure and heart rate. 5. Continue the patient's aspirin for prophylaxis of cardiovascular events. 6. Follow the patient's volume status closely. 7. Discharge planning, as patient does remain stable at this time, with further outpatient followup as described. Thank you for allowing me to participate in the care of this patient. I will continue to follow along very closely with you, with recommendations made inpatient hospital course. Dictated By: Isai Fleming MD /[email or web address]/fadia /Document#: [id number] CC: David Rubin MD;*[facility]*
[2017-03-05] MEDS: ACCU-CHEK XX SCH (02:00)
[2017-03-05 03:59] VITALS: BP 129/60; RESP 21
[2017-03-05 07:39] VITALS: BP 160/69; RESP 18
[2017-03-05] MEDS: ALBUTEROL/IPRATROPIUM (NEB) 3 ML AMP HHN SCH ×2 (07:50→12:00)
[2017-03-05 08:24] VITALS: PULSE 69
[2017-03-05] MEDS: FAMOTIDINE 20 MG TAB PO SCH (09:07)
[2017-03-05] MEDS: ASPIRIN (EC) 81 MG TAB PO SCH (09:07)
[2017-03-05] MEDS: INSULIN ASPART [NOVOLOG] 3 ML PEN SC SCH ×2 (09:08→12:28)
[2017-03-05] MEDS: ENOXAPARIN 40 MG/0.4 ML SYG SC SCH (09:08)
--- NOTE | 2017-03-05 11:13 | PDOCDIS ---
Discharge Instructions DIAGNOSIS Discharge Diagnosis syncope CONDITION Patient Condition: Stable HOME CARE INSTRUCTIONS: Special Diet: 1800 clarisa ACTIVITY: Activity Restrictions: Slowly Increase Activity Rest between Activity Avoid heavy lifting Do not Drive Do not operate Machinery Do not operate Power Tool FOLLOW UP/APPOINTMENTS Follow-up Plan PCP 1wk Dr Fleming 1-2wks ALEXUS GARBER MD Mar 05, 2017 11:13
[2017-03-05 12:01] VITALS: BP 95/46; RESP 16
[2017-03-05 12:11] VITALS: PULSE 102
--- NOTE | 2017-03-05 15:57 | DS ---
Date/Time of Note Date/Time of Note DATE: 03/05/17 TIME: 15:49 Discharge Summary Admission/Discharge Info Admit Date/Time Mar 02, 2017 at 13:23 Discharge Date/Time Mar 05, 2017 at 14:35 Discharge Diagnosis syncope Patient Condition: Stable Procedures Ultrasound and chest x-ray unremarkable. Gallbladder ultrasound concerning for chronic cholecystitis. CT A/P IMPRESSION: 1. Coronary arterial and aortoiliac atherosclerotic calcifications are present. 2. Prostate is mildly enlarged - correlate with PSA level. 3. No mass, lymphadenopathy, or focal acute inflammatory process is identified. RPTAT: HH .Bob Graff MD, MD Date Time Hx of Present Illness HISTORY OF PRESENT ILLNESS: This is an 81-year-old gentleman who lives at home, was in his usual state of health and had an acute episode of dizziness, possibly lost his speech for a very short amount of time, possibly presyncope. No known aggravating, no known relieving factors. By the time he was in the ER, he was lethargic but following commands. Denies any recurrent problems. No focal deficits noted. No focal visual loss. Neuro exam was appropriate. Rosa Coma Scale of 15. Patient denies any change in medications, no trouble swallowing foods. No previous similar discomfort in the past. I believe he uses a cane or a walker. No arrhythmia is seen. EKG is sinus rhythm. Hospital Course Evaluated and managed for syncope. No arrhythmias on monitor. No ACS or, No orthostatic changes. Vital signs stable and nonfocal. Could not do MRI brain due to neck issues. CT scan w/o any acute process. No h/o GI bleed fever or concerning history prior to arrival. On evaluation of his echo there is concern of aortic stenosis. Moderate to severe. Patient was seen by cardiology. He is presently stable but needs to follow-up with cardiology. he was counseled not to drive. Son in the room. -Carotids and troponin negative. Orthostatics negative. Incidentally in the ER, lipase 'elevated'. However CT scan does not show any pancreas or colon issues. Patient denies any bowel or GI issues. I think this is an over read/nondiagnostic lipase. This can be followed as an outpatient. S - 03/03 no further syncope 03/04: No further events. Denies any dysphagia or loss of speech vision. Son updated regarding issue of his heart 03/05: No events. Nonfocal. o- sr no pallor/droop reg; no m/r/g ctab bs + nt nd no r/r/g no edema non focal A/P 1. Presyncope. no arrhythmia. 2. A Stenosis -mod/severe. cardio appt 2wks 3. CAD/cabg 4. Dm/htn/dl 5. Tobacco 6. Copd? Home Meds Reported Medications Ergocalciferol (Vitamin D2) (VITAMIN D2) 50,000 Unit Capsule, 97992 UNIT PO Q7, CAP 03/02/17 Rosuvastatin Calcium* (Crestor*) 20 Mg Tablet, 20 MG PO QHS, #30 TAB 03/02/17 Aspirin (Low Dose Aspirin) 81 Mg Tablet.dr, 81 MG PO DAILY, #30 TAB 03/02/17 Albuterol/Ipratropium* (Combivent Respimat*) 20-100 Mcg/Inh - 4 Gm Aer.w.adap, 1 PUFF INHALATION QID, #1 INHALER 03/02/17 Carvedilol* (Carvedilol*) 25 Mg Tablet, 25 MG PO BID, #60 TAB 03/02/17 Glimepiride* (Glimepiride*) 2 Mg Tablet, 2 MG PO WITH BREAKFAST, TAB 03/02/17 Metformin Hcl* (Metformin Hcl*) 1,000 Mg Tablet, 1000 MG PO WITH BREAKFAST DINNE , #30 TAB 03/02/17 Linagliptin (TRADJENTA) 5 Mg Tablet, 5 MG PO DAILY, TAB 03/02/17 Follow-up Plan PCP 1wk Dr Fleming 2wks Primary Care Provider Care Physician No Primary Time spent on discharge: < 30 minutes Pending Labs Laboratory Tests Test 03/04/17 17:22 03/04/17 20:16 03/05/17 07:58 03/05/17 11:49 Bedside Glucose 92mg/dL (70-220) 202mg/dL (70-220) 159mg/dL (70-220) 250mg/dL (70-220) ALEXUS GARBER MD Mar 05, 2017 15:57
== END 2017-03-05 14:35 | disposition home or self-care (01) | DRG 307 ==
LOC: E/R 11:29 → MS4 13:23
PROVIDERS: ADMIT Internal Medicine; ATTEND Internal Medicine
DX: I35.0 Nonrheumatic aortic (valve) stenosis (principal); E87.0 Hyperosmolality and hypernatremia; E11.9 Type 2 diabetes mellitus without complications; E88.81 Metabolic syndrome and other insulin resistance; E86.0 Dehydration; R55 Syncope and collapse; I10 Essential (primary) hypertension; I25.10 Atherosclerotic heart disease of native coronary artery without angina pectoris; I49.1 Atrial premature depolarization; E78.5 Hyperlipidemia, unspecified; F17.200 Nicotine dependence, unspecified, uncomplicated; R74.8 Abnormal levels of other serum enzymes; Z95.1 Presence of aortocoronary bypass graft; Z79.82 Long term (current) use of aspirin
CPT/HCPCS: 36415; 71010; 74176; 76705; 80053; 80061; 81003; 82962; 83036; 83615; 83690; 83735; 84100; 84439; 84443; 84480; 84484; 85025; 85610; 85730; 87086; 93005; 93306; 93880; 94640; 96374; 96375; J1650; J1815; J2270; J2405; J2543; J7030; J7042

== ENCOUNTER 2018-06-05 14:37 | Inpatient (IN) | END 2018-06-06 19:32 | disposition home health service (06) | DRG 392 ==